=== PATIENT | male | born 1975 | race African-American/Black ===

== ENCOUNTER 2018-05-19 00:53 | Emergency (ER) | payer SELFPAY ==
[~2018-05-19] VITALS: Ht 167.6 cm; Wt 65.0 kg
[2018-05-19] MEDS ORDERED: IBUPROFEN 600MG TABLET PO ONE (08:30)
[2018-05-19 09:49] VITALS: BP 118/64
== END 2018-05-19 09:52 | disposition home or self-care (01) ==
LOC: ER 00:53
DX: J02.8 Acute pharyngitis due to other specified organisms (principal)
CPT/HCPCS: 87070; 87430; 99283